=== PATIENT | female | born 1980 | race Caucasian/White ===

== ENCOUNTER 2017-04-09 14:38 | Outpatient (CLI) | payer MEDICAID ==
[~2017-04-09] VITALS: Ht 165.1 cm; Wt 62.8 kg
[2017-04-09] MEDS ORDERED: PREN1TAB60 PO (14:50)
[2017-04-09 15:09] VITALS: BP 115/77
[2017-04-09] MEDS ORDERED: SIMETHICONE 80 MG CHEW TAB PO ONE (15:30)
[2017-04-09] MEDS ORDERED: SIMETHICONE 80 MG CHEW TAB ONE (16:08)
[2017-04-09 16:18] LABS: DAU SCREEN DISCLAIMER
[2017-04-10] MEDS ORDERED: SENNA/DOCUSATE TABLET PO SCH (09:00)
== END 2017-04-09 17:10 | disposition home or self-care (01) ==
LOC: LDOP 14:38
PROVIDERS: ATTEND Obstetrics & Gynecology
DX: O30.003 Twin pregnancy, unspecified number of placenta and unspecified number of amniotic sacs, third trimester (principal); O26.893 Other specified pregnancy related conditions, third trimester; R10.9 Unspecified abdominal pain; Z3A.32 32 weeks gestation of pregnancy
CPT/HCPCS: 59025; 80307; 81001; 87086; 99211; G0463

== ENCOUNTER 2017-04-30 09:57 | Inpatient (IN) | payer MEDICAID ==
[~2017-04-30] VITALS: Ht 162.6 cm; Wt 65.5 kg
[~2017-04-30 09:57] MED LIST: PREN1TAB60 PO
[2017-04-30 10:43] VITALS: BP 124/76
[2017-04-30 11:16] LABS: ASPARTATE AMINO TRANSFERASE 26 U/L (15-37); BLOOD UREA NITROGEN 9 mg/dL (7-18)
[2017-04-30 12:03] LABS: DAU SCREEN DISCLAIMER
[2017-04-30] MEDS ORDERED: BETAMETHASONE 6 MG/ML, 5ML IM ONE ×2 (12:59→13:05)
[2017-04-30] MEDS: BETAMETHASONE 6 MG/ML, 5ML IM SCH (13:06)
[2017-04-30] MEDS ORDERED: ZOLPIDEM 5MG TABLET PO PRN (17:30)
[2017-04-30] MEDS: LACTATED RINGERS 1,000 ML IV SCH (18:22)
[2017-05-01] MEDS: LACTATED RINGERS 1,000 ML IV SCH ×3 (01:43→20:00)
[2017-05-01 05:42] LABS: ASPARTATE AMINO TRANSFERASE 20 U/L (15-37); BLOOD UREA NITROGEN 7 mg/dL (7-18)
[2017-05-01] MEDS: FERROUS SULFATE 325 MG TABLET PO SCH ×3 (08:00→17:00)
[2017-05-01 08:30] VITALS: BP 101/73
[2017-05-01] MEDS: PRENATAL VIT/IRON/FA 1 EACH TABLET PO SCH (09:00)
[2017-05-01 13:00] VITALS: BP 123/65
[2017-05-01] MEDS ORDERED: BETAMETHASONE 6 MG/ML, 5ML IM ONE (13:00)
[2017-05-01] MEDS: BETAMETHASONE 6 MG/ML, 5ML IM SCH (13:33)
[2017-05-01 20:00] VITALS: BP 113/59
[2017-05-01] MEDS ORDERED: DOCUSATE 100 MG CAPSULE PO SCH (21:00)
[2017-05-02 00:10] VITALS: BP 111/59
[2017-05-02] MEDS: LACTATED RINGERS 1,000 ML IV SCH ×3 (01:37→17:37)
[2017-05-02 08:30] VITALS: BP 114/67
[2017-05-02] MEDS: FERROUS SULFATE 325 MG TABLET PO SCH ×2 (12:00→17:00)
[2017-05-02 17:00] VITALS: BP 113/71
[2017-05-02] MEDS: DOCUSATE 100 MG CAPSULE PO SCH (21:00)
[2017-05-03] MEDS: LACTATED RINGERS 1,000 ML IV SCH ×3 (01:37→17:37)
[2017-05-03] MEDS: FERROUS SULFATE 325 MG TABLET PO SCH ×3 (08:00→16:29)
[2017-05-03] MEDS ORDERED: PRENATAL VIT/IRON/FA 1 EACH TABLET ONE (08:32)
[2017-05-03] MEDS ORDERED: FERROUS SULFATE 325 MG TABLET ONE ×2 (08:33→16:28)
[2017-05-03] MEDS: PRENATAL VIT/IRON/FA 1 EACH TABLET PO SCH ×2 (08:35→09:00)
[2017-05-03 08:39] VITALS: BP 112/56
[2017-05-03] MEDS ORDERED: DOCUSATE 100 MG CAPSULE ONE (16:28)
[2017-05-03] MEDS: DOCUSATE 100 MG CAPSULE PO SCH (16:29)
[2017-05-04] MEDS: LACTATED RINGERS 1,000 ML IV SCH ×3 (01:37→17:37)
[2017-05-04] MEDS: FERROUS SULFATE 325 MG TABLET PO SCH ×4 (08:00→17:00)
[2017-05-04] MEDS ORDERED: PRENATAL VIT/IRON/FA 1 EACH TABLET ONE (08:20)
[2017-05-04] MEDS ORDERED: DOCUSATE 100 MG CAPSULE ONE (08:20)
[2017-05-04] MEDS: PRENATAL VIT/IRON/FA 1 EACH TABLET PO SCH (08:24)
[2017-05-04] MEDS: DOCUSATE 100 MG CAPSULE PO SCH ×3 (08:25→21:00)
[2017-05-05] MEDS: LACTATED RINGERS 1,000 ML IV SCH ×4 (01:37→22:46)
[2017-05-05] MEDS ORDERED: FERROUS SULFATE 325 MG TABLET ONE (08:20)
[2017-05-05] MEDS ORDERED: PRENATAL VIT/IRON/FA 1 EACH TABLET ONE (08:20)
[2017-05-05] MEDS ORDERED: DOCUSATE 100 MG CAPSULE ONE (08:20)
[2017-05-05] MEDS: DOCUSATE 100 MG CAPSULE PO SCH ×2 (08:25→21:00)
[2017-05-05] MEDS: FERROUS SULFATE 325 MG TABLET PO SCH ×3 (08:25→17:00)
[2017-05-05] MEDS: PRENATAL VIT/IRON/FA 1 EACH TABLET PO SCH (08:25)
[2017-05-05 08:27] VITALS: BP 126/74
[2017-05-05] MEDS: SODIUM CHLORIDE FLUSH 3ML SYRINGE IVF SCH (14:03)
[2017-05-05] MEDS ORDERED: MAGNESIUM HYDROXIDE 8%, 30ML UDC ONE (19:05)
[2017-05-05 19:22] VITALS: BP 120/79
[2017-05-05] MEDS ORDERED: MAGNESIUM HYDROXIDE 8%, 30ML UDC PO PRN (19:30)
[2017-05-05] MEDS ORDERED: OXYTOCIN 30U/ 0.9% NaCL 500ML 500 ML IV PRN (21:03)
[2017-05-05] MEDS ORDERED: AMPICILLIN 2 GM in SODIUM CHLORIDE 0.9% 100 ML IVPB STA (21:03)
[2017-05-05] MEDS ORDERED: OXYTOCIN 30U/ 0.9% NaCL 500ML 500 ML IV ONE (21:03)
[2017-05-05] MEDS: D5%-LACTATED RINGERS 1,000 ML IV SCH (21:03)
[2017-05-05] MEDS ORDERED: OXYTOCIN 30U/ 0.9% NaCL 500ML 500 ML ONE (21:11)
[2017-05-05] MEDS ORDERED: MISOPROSTOL 200 MCG TABLET ONE (21:11)
[2017-05-05] MEDS ORDERED: LIDOCAINE 1%, 20ML ONE (21:11)
[2017-05-05] MEDS ORDERED: CALCIUM CARBONATE 500 MG TAB.CHEW PO PRN (21:30)
[2017-05-05] MEDS ORDERED: SODIUM CITRATE/CITRIC ACID 30 ML UDC PO PRN (21:30)
[2017-05-05] MEDS ORDERED: ALUMINUM/MAG/SIMETHICONE 30 ML UDC PO PRN (21:30)
[2017-05-05] MEDS ORDERED: FENTANYL PF 100 MCG/2ML IVPush PRN (21:30)
[2017-05-05] MEDS ORDERED: ONDANSETRON 2MG/ML, 2ML IVPush PRN (21:30)
[2017-05-05] MEDS ORDERED: FENTANYL PF 100 MCG/2ML ONE (22:25)
[2017-05-05] MEDS ORDERED: FENTANYL/BUPIV./NS/PF 250 ML EPIDCONT ONE (22:26)
[2017-05-05] MEDS ORDERED: BUPIVACAINE 0.25% ONE (22:26)
[2017-05-05] MEDS ORDERED: FENTANYL/BUPIV./NS/PF 250 ML EPIDCONT SCH (23:07)
[2017-05-05] MEDS ORDERED: LACTATED RINGERS 1,000 ML IVBOLUS PRN (23:30)
[2017-05-06] MEDS ORDERED: SODIUM CITRATE/CITRIC ACID 30 ML UDC ONE (01:13)
[2017-05-06] MEDS ORDERED: METOCLOPRAMIDE 5 MG/ML, 2ML ONE (01:13)
[2017-05-06] MEDS ORDERED: ONDANSETRON 2MG/ML, 2ML ONE (01:23)
[2017-05-06] MEDS: AMPICILLIN 1 GM in SODIUM CHLORIDE 0.9% 50 ML IVPB SCH ×3 (01:45→09:30)
[2017-05-06] MEDS: D5%-LACTATED RINGERS 1,000 ML IV SCH (05:03)
[2017-05-06] MEDS: OXYTOCIN 30U/ 0.9% NaCL 500ML 500 ML IV SCH ×2 (06:47→16:47)
[2017-05-06] MEDS ORDERED: CALCIUM CARBONATE 500 MG TAB.CHEW PO PRN (07:00)
[2017-05-06] MEDS ORDERED: OXYcodone/APAP 5/325MG TABLET PO PRN (07:00)
[2017-05-06] MEDS ORDERED: MISOPROSTOL 200 MCG TABLET PR PRN (07:00)
[2017-05-06] MEDS ORDERED: BISACODYL 10 MG SUPP PR PRN (07:00)
[2017-05-06] MEDS ORDERED: METHYLERGONOVINE 0.2 MG/ML IM PRN (07:00)
[2017-05-06] MEDS ORDERED: ONDANSETRON 2MG/ML, 2ML IV PRN (07:00)
[2017-05-06] MEDS ORDERED: CARBOPROST TROMETHAMINE 250 MCG/ML, 1ML IM PRN (07:00)
[2017-05-06] MEDS ORDERED: MAGNESIUM HYDROXIDE 8%, 30ML UDC PO PRN (07:00)
[2017-05-06] MEDS: LACTATED RINGERS 1,000 ML IV SCH (07:07)
[2017-05-06] MEDS: FERROUS SULFATE 325 MG TABLET PO SCH ×3 (08:00→18:24)
[2017-05-06] MEDS ORDERED: IBUPROFEN 600 MG TABLET ONE (08:19)
[2017-05-06] MEDS: IBUPROFEN 600 MG TABLET PO PRN ×3 (08:22→20:40)
[2017-05-06 08:50] VITALS: BP 115/75
[2017-05-06] MEDS: PRENATAL VIT/IRON/FA 1 EACH TABLET PO SCH ×2 (09:00)
[2017-05-06] MEDS: SODIUM CHLORIDE FLUSH 3ML SYRINGE IVF SCH (09:00)
[2017-05-06] MEDS: DOCUSATE 100 MG CAPSULE PO SCH (09:00)
[2017-05-06 13:00] VITALS: BP 122/85
[2017-05-06] MEDS: OXYcodone/APAP 5/325MG TABLET PO PRN ×2 (14:45→19:57)
[2017-05-06 16:45] LABS: DIFF TOTAL CELLS COUNTED 100 CELL DIFF
[2017-05-06 16:49] LABS: VERIFY COUNTS? YES
[2017-05-06] MEDS: DOCUSATE 100 MG CAPSULE PO PRN (19:57)
[2017-05-06 20:00] VITALS: BP 138/85
[2017-05-07 00:15] VITALS: BP 118/73
[2017-05-07] MEDS: OXYcodone/APAP 5/325MG TABLET PO PRN ×2 (00:36→07:59)
[2017-05-07] MEDS: SODIUM CHLORIDE FLUSH 3ML SYRINGE IVF SCH (00:37)
[2017-05-07 04:07] VITALS: BP 100/48
[2017-05-07 07:00] VITALS: BP 102/65
[2017-05-07] MEDS: FERROUS SULFATE 325 MG TABLET PO SCH (07:58)
[2017-05-07] MEDS: DOCUSATE 100 MG CAPSULE PO PRN (07:58)
[2017-05-07] MEDS: IBUPROFEN 600 MG TABLET PO PRN (07:59)
[2017-05-07] MEDS: PRENATAL VIT/IRON/FA 1 EACH TABLET PO SCH (07:59)
[2017-05-07] MEDS ORDERED: OXYC-302 PO (14:13)
[2017-05-07] MEDS ORDERED: IBUP-1222 PO (14:15)
== END 2017-05-07 16:15 | disposition home or self-care (01) | DRG 774 ==
LOC: LDOP 09:57 → LDIP 17:14 → 2NW 05-06 08:48
PROVIDERS: ADMIT Obstetrics & Gynecology; ATTEND Obstetrics & Gynecology
PROC: 10E0XZZ Delivery of Products of Conception, External Approach (ICD-10-PCS; principal; 2017-05-06)
PROC: 10907ZC Drainage of Amniotic Fluid, Therapeutic from Products of Conception, Via Natural or Artificial Opening (ICD-10-PCS; 2017-05-06)
PROC: 00HU33Z Insertion of Infusion Device into Spinal Canal, Percutaneous Approach (ICD-10-PCS; 2017-05-06)
PROC: 3E0R3CZ (ICD-10-PCS; 2017-05-06)
DX: O30.043 Twin pregnancy, dichorionic/diamniotic, third trimester (principal); O24.92 Unspecified diabetes mellitus in childbirth; O99.324 Drug use complicating childbirth; Z37.2 Twins, both liveborn; O12.04 Gestational edema, complicating childbirth; O36.5930 Maternal care for other known or suspected poor fetal growth, third trimester, not applicable or unspecified; O42.919 Preterm premature rupture of membranes, unspecified as to length of time between rupture and onset of labor, unspecified trimester; O99.824 Streptococcus B carrier state complicating childbirth; F15.90 Other stimulant use, unspecified, uncomplicated; O69.1XX2 Labor and delivery complicated by cord around neck, with compression, fetus 2; Z59.0 Homelessness; Z91.19 Patient's noncompliance with other medical treatment and regimen; Z3A.36 36 weeks gestation of pregnancy; Z91.040 Latex allergy status
CPT/HCPCS: 36415; 76805; 76810; 80053; 80307; 81001; 81050; 82570; 82803; 84156; 84550; 85025; 86850; 86900; 87086; 88307; 89060; J0290; J0702; J2405; J3490; J2590; J3010; J7120; Q0114

== ENCOUNTER 2017-05-09 21:41 | Emergency (ER) | payer MEDICAID ==
[~2017-05-09] VITALS: Ht 162.6 cm; Wt 60.4 kg
[~2017-05-09 21:41] MED LIST changes: +IBUP-1222 PO; +OXYC-302 PO
[2017-05-09] MEDS ORDERED: SODIUM CHLORIDE 0.9% 1,000 ML IV ONE (21:53)
[2017-05-09] MEDS ORDERED: SODIUM CHLORIDE FLUSH 10ML SYR IVF ONE (22:00)
[2017-05-09] MEDS ORDERED: HYDROmorphone 1 MG/ML, 1ML IVPush PRN (22:00)
[2017-05-09] MEDS ORDERED: ONDANSETRON 2MG/ML, 2ML IVPush ONE (22:00)
[2017-05-09] MEDS ORDERED: SODIUM CHLORIDE 0.9% 1,000ML IVBOLUS ONE (22:00)
[2017-05-09] MEDS ORDERED: HYDROmorphone 1 MG/ML, 1ML ONE (22:04)
[2017-05-09] MEDS ORDERED: ONDANSETRON 2MG/ML, 2ML ONE (22:04)
[2017-05-09 22:31] LABS: ASPARTATE AMINO TRANSFERASE 31 U/L (15-37); BLOOD UREA NITROGEN 12 mg/dL (7-18)
[2017-05-09 23:28] LABS: PATH.CAST-FLAG NOT PRESENT; SPERM-FLAG NOT PRESENT; SRC-FLAG NOT PRESENT; XTAL-FLAG NOT PRESENT; YLC-FLAG NOT PRESENT
[2017-05-09] MEDS ORDERED: OMNIPAQUE 350 MG/ML, 100ML BOTTLE ONE (23:50)
[2017-05-10] MEDS ORDERED: PINK LADY ENEMA 1,000 ML PR ONE (01:30)
[2017-05-10 01:57] VITALS: BP 126/81
== END 2017-05-10 02:00 | disposition home or self-care (01) ==
LOC: ED 23:59
DX: K59.00 Constipation, unspecified (principal); K58.9 Irritable bowel syndrome, unspecified; R10.84 Generalized abdominal pain; D72.829 Elevated white blood cell count, unspecified
CPT/HCPCS: 36415; 74022; 74177; 80053; 81001; 83690; 85025; 96361; 96374; 96375; 99285; J1170; J2405; J7030; Q9967

== ENCOUNTER 2017-05-16 14:54 | Emergency (ER) | payer MEDICAID ==
[~2017-05-16] VITALS: Ht 162.6 cm; Wt 52.4 kg
[2017-05-16 15:01] VITALS: BP 111/73
== END 2017-05-16 16:06 | disposition home or self-care (01) ==
LOC: ED 16:00
DX: S50.12XA Contusion of left forearm, initial encounter (principal); S60.221A Contusion of right hand, initial encounter; Y08.89XA Assault by other specified means, initial encounter; Y93.89 Activity, other specified; Y92.89 Other specified places as the place of occurrence of the external cause; Y99.8 Other external cause status
CPT/HCPCS: 99284

== ENCOUNTER 2017-10-21 12:11 | Emergency (ER) | payer MEDICAID ==
[~2017-10-21] VITALS: Ht 162.6 cm; Wt 56.9 kg
[2017-10-21 16:11] VITALS: BP 112/64
== END 2017-10-21 16:15 | disposition home or self-care (01) ==
LOC: ED 15:23
DX: R11.2 Nausea with vomiting, unspecified (principal); R19.7 Diarrhea, unspecified
CPT/HCPCS: 74021; 99284

== ENCOUNTER 2019-02-01 16:01 | Emergency (ER) | payer MEDICAID ==
[~2019-02-01] VITALS: Ht 162.6 cm; Wt 53.9 kg
[2019-02-01 16:02] VITALS: BP 112/80
[2019-02-01 16:50] LABS: BASOPHILS # (AUTO) 0.04 x10^3/uL (0-0.1); BASOPHILS % (AUTO) 0 % (0-1); EOSINOPHILS # (AUTO) 0.97 x10^3/uL (0-0.4); EOSINOPHILS % (AUTO) 8 % (1-7); LYMPHOCYTES # (AUTO) 2.43 x10^3/uL (1-3.4); LYMPHOCYTES % (AUTO) 19 % (22-44); MD NO; MEAN CORPUSCULAR HEMOGLOBIN 29.4 pg (27.0-34.8); MEAN PLATELET VOLUME 8.3 fL (7.4-10.4); MONOCYTES # (AUTO) 0.55 x10^3/uL (0.2-0.8); MONOCYTES % (AUTO) 4 % (2-9); NEUTROPHILS # (AUTO) 8.57 x10^3/uL (1.8-6.8); NEUTROPHILS % (AUTO) 68 % (42-75); PLATELET COUNT 350 x10^3/uL (130-400); RED BLOOD COUNT 5.59 x10^6/uL (3.82-5.3); RED CELL DISTRIBUTION WIDTH 13.6 % (9.6-15.2)
[2019-02-01 17:04] LABS: ALBUMIN 4.1 g/dL (3.4-5.0); ANION GAP 7 mmol/L (5-15); CALCIUM 8.5 mg/dL (8.5-10.1); CHLORIDE 115 mmol/L (98-107)
[2019-02-01 17:07] LABS: ALANINE AMINOTRANSFERASE 18 U/L (12-78); ALKALINE PHOSPHATASE 98 U/L (45-117); BILIRUBIN,TOTAL 0.4 mg/dL (0.2-1.0); TOTAL PROTEIN 7.7 g/dL (6.4-8.2)
--- NOTE | 2019-02-01 17:32 | NUR ---
FROM LOBBY TO ROOM AT THIS TIME
--- NOTE | 2019-02-01 17:46 | NUR ---
FIRST CONTACT WITH PT: Per pt, "I have had stomach issues on and off for the last year. I even saw gastroenterology and they gave me medications to take when I need to. For the last day I have had horrible stomach pain and I can't keep anything but water down. I havn't eaten in the last day. I usually get diarrhea with these flairs, but I am not right now. I am not in pain right now, but earlier in the lobby I was and I told the information security engineer I couldn't take it anymore." NADN. Pt resting on gurney with side rail up and connected to NIBP and continous pulse ox. Pt has unlabored respirations with equal chest rise and fall. Call light within reach.
[2019-02-01] MEDS ORDERED: BUPR-86 PO (17:53)
[2019-02-01] MEDS ORDERED: PARO10TA56 PO (17:53)
[2019-02-01] MEDS ORDERED: ONDANSETRON 2MG/ML, 2ML ONE (17:56)
[2019-02-01] MEDS ORDERED: PROMETHAZINE 25 MG/ML, 1ML IM ONE (19:00)
[2019-02-01] MEDS ORDERED: SODIUM CHLORIDE 0.9% 1,000ML IVBOLUS ONE (19:00)
[2019-02-01] MEDS ORDERED: SODIUM CHLORIDE FLUSH 10ML SYR IVF ONE (19:00)
[2019-02-01] MEDS ORDERED: ONDANSETRON 2MG/ML, 2ML IVPush ONE (19:00)
--- NOTE | 2019-02-01 19:16 | NUR ---
Provided report to JAH Pak. All questions answered. JAH Pak to assume care of pt.
[2019-02-01] MEDS ORDERED: PROMETHAZINE 25 MG/ML, 1ML ONE (19:30)
--- NOTE | 2019-02-01 19:58 | NUR ---
Patient/Caregiver given discharge instructions and they have confirmed that they understand the instructions. Patient ambulatory with steady gait.
== END 2019-02-01 20:05 | disposition home or self-care (01) ==
LOC: ED 19:44
DX: R11.2 Nausea with vomiting, unspecified (principal); R10.84 Generalized abdominal pain; K58.9 Irritable bowel syndrome, unspecified
CPT/HCPCS: 36415; 76700; 80053; 83690; 84703; 85025; 96361; 96374; 99284; J2405; J7030

== ENCOUNTER 2019-09-15 09:48 | Emergency (ER) | payer MEDICAID ==
[~2019-09-15] VITALS: Ht 162.6 cm; Wt 50.0 kg
[~2019-09-15 09:48] MED LIST changes: +BUPR-86 PO; +BUPR300T4 PO; +PARO10TA56 PO; +PARO30TA45 PO
--- NOTE | 2019-09-15 10:12 | NUR ---
SCALP TREATMENT SPECIALIST: PT AMBULATORY WITH STEADY GAIT TO ROOM FROM LOBBY AT THIS TIME.
[2019-09-15 10:46] VITALS: BP 113/69
[2019-09-15 10:56] LABS: MICROSCOPIC INDICATED
[2019-09-15] MEDS ORDERED: SODIUM CHLORIDE FLUSH 10ML SYR IVF ONE (11:00)
[2019-09-15] MEDS ORDERED: ONDANSETRON 2MG/ML, 2ML IVPush ONE (11:00)
[2019-09-15 11:01] LABS: BASOPHILS # (AUTO) 0.03 x10^3/uL (0-0.1); BASOPHILS % (AUTO) 0 % (0-1); EOSINOPHILS # (AUTO) 1.73 x10^3/uL (0-0.4); EOSINOPHILS % (AUTO) 13 % (1-7); LYMPHOCYTES # (AUTO) 1.33 x10^3/uL (1-3.4); LYMPHOCYTES % (AUTO) 10 % (22-44); MD NO; MEAN CORPUSCULAR HEMOGLOBIN 30.6 pg (27.0-34.8); MEAN CORPUSCULAR HGB CONC 32.8 g/dL (32.4-35.8); MEAN CORPUSCULAR VOLUME 93.3 fL (80-100); MEAN PLATELET VOLUME 8.3 fL (7.4-10.4); MONOCYTES # (AUTO) 0.74 x10^3/uL (0.2-0.8); MONOCYTES % (AUTO) 6 % (2-9); NEUTROPHILS # (AUTO) 9.08 x10^3/uL (1.8-6.8); NEUTROPHILS % (AUTO) 70 % (42-75); PLATELET COUNT 283 x10^3/uL (130-400); RED BLOOD COUNT 5.15 x10^6/uL (3.82-5.3); RED CELL DISTRIBUTION WIDTH 13.7 % (9.6-15.2)
[2019-09-15 11:11] LABS: ALANINE AMINOTRANSFERASE 25 U/L (12-78); ANION GAP 7 mmol/L (5-15); CALCIUM 8.8 mg/dL (8.5-10.1); CHLORIDE 104 mmol/L (98-107); CREATININE 0.94 mg/dL (0.55-1.02)
[2019-09-15 11:16] LABS: ALKALINE PHOSPHATASE 120 U/L (45-117); BILIRUBIN,TOTAL 0.7 mg/dL (0.2-1.0); TOTAL PROTEIN 8.7 g/dL (6.4-8.2)
--- NOTE | 2019-09-15 11:23 | NUR ---
Pt to US in NAD
[2019-09-15] MEDS ORDERED: ONDANSETRON 2MG/ML, 2ML ONE (11:48)
[2019-09-15] MEDS ORDERED: KETOROLAC 30 MG/1 ML ONE (12:04)
[2019-09-15] MEDS ORDERED: CEFTRIAXONE PMX 1GM/50ML 50 ML ONE (12:21)
[2019-09-15] MEDS ORDERED: KETOROLAC 30 MG/1 ML IVPush ONE (12:30)
[2019-09-15] MEDS ORDERED: CEFTRIAXONE PMX 1GM/50ML 50 ML IVPB ONE (12:30)
== END 2019-09-15 13:27 | disposition home or self-care (01) ==
LOC: ED 10:40
DX: N39.0 Urinary tract infection, site not specified (principal); Z76.0 Encounter for issue of repeat prescription; R11.0 Nausea
CPT/HCPCS: 36415; 76830; 80053; 81001; 84703; 85025; 96365; 96375; 99284; J0696; J1885; J2405

== ENCOUNTER 2019-10-06 16:10 | Emergency (ER) | payer MEDICAID ==
[~2019-10-06] VITALS: Ht 162.6 cm; Wt 49.0 kg
[2019-10-06 16:19] VITALS: BP 101/61
--- NOTE | 2019-10-06 16:52 | NUR ---
PT STATES SHE JUST FINISHED ABX FOR A UTI ON WEDNESDAY. REPORTS 3 UTIs THIS YEAR.
[2019-10-06 17:11] LABS: CULTURE INDICATED? YES; MICROSCOPIC INDICATED
[2019-10-06] MEDS ORDERED: KETOROLAC 30 MG/1 ML ONE (17:24)
[2019-10-06] MEDS ORDERED: KETOROLAC 30 MG/1 ML IVPush ONE (17:30)
[2019-10-06] MEDS ORDERED: MORPHINE SULFATE 4 MG/ML, 1ML IVPush PRN (17:30)
--- NOTE | 2019-10-06 17:40 | NUR ---
RN AT FOR US-GUIDED IV PLACEMENT.
--- NOTE | 2019-10-06 18:00 | NUR ---
3 FAILED ATTEMPTS AT IV INSERTION/BLOOD DRAW. PT STATES, "I DON'T WANT TO BE POKED AGAIN". WILL NOTIFY ERP. Addendum: 10/06/19 at 1908 by MOHAN EXPLAINED TO PT NECESSITY OF GETTING BLOOD DRAW/DOING CT WITH CONTRAST TO DETERMINE ETIOLOGY OF ABD PAIN. PT INSISTED THAT SHE DOESN'T WANT TO BE POKED ANYMORE.
--- NOTE | 2019-10-06 18:40 | NUR ---
ERP IN FOR RE-EVAL. PT STATES SHE WANTS TO LEAVE AMA.
--- NOTE | 2019-10-06 19:06 | NUR ---
D/C INSTRUCTIONS AND RX PROVIDED TO PT. PT DECLINES PAIN MEDICATION. REFUSES TO SIGN D/C OR AMA PAPERWORK.
== END 2019-10-06 19:09 | disposition left against medical advice (07) ==
LOC: ED 18:14
DX: N30.00 Acute cystitis without hematuria (principal)
CPT/HCPCS: 81001; 87077; 87086; 87186; 99283

== ENCOUNTER 2019-12-28 20:15 | Emergency (ER) | payer MEDICAID ==
[~2019-12-28] VITALS: Ht 162.6 cm; Wt 52.0 kg
[~2019-12-28 20:15] MED LIST changes: -BUPR300T4 PO; +BUPR300T94 PO
[2019-12-28 20:34] VITALS: BP 108/75
== END 2019-12-28 21:53 | disposition home or self-care (01) ==
LOC: ED 21:10
DX: J30.2 Other seasonal allergic rhinitis (principal); H10.023 Other mucopurulent conjunctivitis, bilateral
CPT/HCPCS: 87081; 87880; 99283

== ENCOUNTER 2020-02-11 22:19 | Emergency (ER) | payer MEDICAID ==
[~2020-02-11] VITALS: Ht 165.1 cm; Wt 50.0 kg
[2020-02-11 22:25] VITALS: BP 147/87
== END 2020-02-11 22:48 | disposition home or self-care (01) ==
LOC: ED 22:37
DX: F41.1 Generalized anxiety disorder (principal); F32.9 Major depressive disorder, single episode, unspecified; Z76.0 Encounter for issue of repeat prescription
CPT/HCPCS: 99283

== ENCOUNTER 2020-05-04 01:12 | Emergency (ER) | payer MEDICAID ==
[~2020-05-04] VITALS: Ht 162.6 cm; Wt 51.7 kg
[2020-05-04 01:23] VITALS: BP 125/89
== END 2020-05-04 02:44 | disposition home or self-care (01) ==
LOC: ED 02:24
DX: H60.501 Unspecified acute noninfective otitis externa, right ear (principal); H92.01 Otalgia, right ear
CPT/HCPCS: 99283

== ENCOUNTER 2021-02-16 00:18 | Emergency (ER) | payer MEDICAID ==
[~2021-02-16] VITALS: Ht 165.1 cm; Wt 55.0 kg
[~2021-02-16 00:18] MED LIST changes: -OXYC-302 PO; +OXYC1TAB14 PO
[2021-02-16] MEDS ORDERED: DOXYCYCLINE 100MG TABLET PO ONE (01:30)
[2021-02-16] MEDS ORDERED: CEFTRIAXONE 1,000 MG IM ONE (01:30)
--- NOTE | 2021-02-16 02:31 | NUR ---
instruction librarian: pt from lobby to room 24
[2021-02-16] MEDS ORDERED: CEFTRIAXONE 1,000 MG ONE (02:33)
[2021-02-16] MEDS ORDERED: DOXYCYCLINE 100MG TABLET ONE (02:33)
[2021-02-16 03:13] LABS: HCG UR SG 1.032 (1.003-1.030)
[2021-02-16 03:20] LABS: MICROSCOPIC INDICATED
[2021-02-16 03:22] LABS: CLUE CELLS NONE SEEN (NONE SEEN)
[2021-02-16 03:24] LABS: WET PREP WBCS MODERATE (FEW)
[2021-02-16 03:27] VITALS: BP 104/78
--- NOTE | 2021-02-16 04:10 | NUR ---
pt came into ed for std check. medicated per dec. Patient given discharge instructions and they have confirmed that they understand the instructions. Patient ambulatory. NAD, NO PERSONAL BELONGINGS LEFT IN ROOM AFTER DC. denies additional questions.
== END 2021-02-16 04:12 | disposition home or self-care (01) ==
LOC: ED 03:15
DX: A59.01 Trichomonal vulvovaginitis (principal); R10.2 Pelvic and perineal pain; A59.09 Other urogenital trichomoniasis; N89.8 Other specified noninflammatory disorders of vagina; F15.10 Other stimulant abuse, uncomplicated; Z72.9 Problem related to lifestyle, unspecified
CPT/HCPCS: 81001; 81025; 87086; 87210; 87491; 87591; 87808; 96372; 99284; J0696